=== PATIENT | female | born 1945 | race Caucasian/White ===

== ENCOUNTER → 2016-07-30 | Outpatient (CLI) | payer OTHER ==
[~2016-07-30] MED LIST: AMLO2.5T2 PO; ASPEC81 PO; ATEN-173 PO; CALC500C3 PO; CALCTAB7 PO; CHOL100027 PO; CLR10 PO; FENO54TA PO; FISHOIL PO; MULT-506 PO; NTRGSL/4 UT; PRLSR20 PO; PXL20 PO; SUMA20SP; ZCRT/40 PO
--- NOTE | 2016-07-30 09:14 | DIAGNOSTIC IMAGING REPORT ---
(BARIUM SWALLOW) ESOPHAGUS CLINICAL HISTORY: DYSPHAGIA COMPARISON STUDY: None. FLUOROSCOPY TIME: 1.3 minutes. 30 images submitted.. FINDINGS: The contours of the hypopharynx are within normal limits. The esophagus normal in course, caliber, and motility. There is severe gastroesophageal reflux. No hiatus hernia. IMPRESSION: Severe gastroesophageal reflux. Electronically signed by: Sundeep Enamorado M.D. 07/30/2016 9:13 AM Dictated Date/Time: 07/30/2016 9:12 AM
== END | disposition home or self-care (01) ==
LOC: C.RAD 08:37
PROVIDERS: ATTEND Internal Medicine
DX: R13.12 Dysphagia, oropharyngeal phase (principal); K21.9 Gastro-esophageal reflux disease without esophagitis

== ENCOUNTER 2022-01-30 06:12 | Observation (INO) ==
--- NOTE | 2021-12-28 12:27 | PAT Medication Instructions ---
Medication Instructions Date of Service December 28, 2021 Home Medications amlodipine 5 mg tablet 5 mg PO QAM nitroglycerin 0.4 mg sublingual tablet 0.4 mg sublingual Q5M PRN Chest Pain simvastatin 20 mg tablet 20 mg PO HS lisinopril 10 mg tablet 10 mg PO QAM cetirizine 10 mg capsule (Zyrtec) 10 mg PO QAM PRN allergies famotidine 20 mg tablet 20 mg PO QAM coenzyme Q10 200 mg capsule (Co Q-10) 200 mg PO QAM metoprolol succinate 25 mg tablet,extended release 24 hr 25 mg PO QAM Women's 50 Plus Daily Formula 1 tab PO QAM omega-3 fatty acids-vitamin E 1,000 mg capsule 1 cap PO TID sertraline 50 mg tablet 50 mg PO QAM Continue as directed nitroglycerin 0.4 mg sublingual tablet 0.4 mg sublingual Q5M PRN Chest Pain (if needed) STOP taking 2 weeks before surgery (or as soon as possible if surgery is within 2 weeks) coenzyme Q10 200 mg capsule (Co Q-10) 200 mg PO QAM omega-3 fatty acids-vitamin E 1,000 mg capsule 1 cap PO TID DO NOT take the morning of surgery lisinopril 10 mg tablet 10 mg PO QAM cetirizine 10 mg capsule (Zyrtec) 10 mg PO QAM PRN allergies Women's 50 Plus Daily Formula 1 tab PO QAM Take morning of surgery With a small sip of water, OTHERWISE NOTHING TO EAT OR DRINK AFTER MIDNIGHT: amlodipine 5 mg tablet 5 mg PO QAM famotidine 20 mg tablet 20 mg PO QAM metoprolol succinate 25 mg tablet,extended release 24 hr 25 mg PO QAM sertraline 50 mg tablet 50 mg PO QAM Take evening before surgery simvastatin 20 mg tablet 20 mg PO HS Other Notes If you have any questions please call us at [phone] or [phone] or [phone] or [phone]
--- NOTE | 2022-01-03 11:52 | Anesthesiology Consultation ---
Date of Service January 03, 2022 Assessment & Plan (1) Encounter for pre-operative examination: - cardiology 09/26/21 [place]: "...Remote history of mild coronary artery disease on cardiac catheterization...History of stress-induced cardiomyopathy (Takotsubo syndrome)...No anginal or anginal equivalent symptoms...did not have any anginal or anginal equivalent symptoms with prolonged exertion even when at high altitudes when visiting [place]...stable exercise tolerance and stamina...Hypertension. Initial blood pressure mildly elevated. Repeat pressure taken by me showed improvement in the diastolic reading...follow-up visit interval to 1 year..." - COVID screening: Per assessment on 01/03/2022: Travel screen negative, no known COVID-19 positive contacts or current COVID-19 related symptoms in past 2 weeks. Pt vaccinated. Surgeon arranging preop COVID testing, scheduled 01/26/2022. Awaiting results. Chart Review Chart Review: Acceptable Risk for Surgery and Patient seen in Pre Admission Testing Teaching & Discussion Pre-Anesthesia Teaching/Discussion Notes: Instructed NPO after midnight before surgery, except medications with 15 cc of water. Medication instructions provided according to the PAT guidelines. History Surgery Operation Date: 01/30/22 07:15 Proposed Procedures p Right Total Knee Arthroplasty - Manuel Daly DO Height/Weight Height: 5 ft 1.5 in Weight: 78.9 kg Allergies Allergy/AdvReac Type Severity Reaction Status Date / Time nickel Allergy Mild skin Verified 01/03/22 09:50 irritation, rash, itching ezetimibe Allergy Unknown RASH Verified 01/03/22 09:50 metronidazole Allergy Unknown lips break Verified 01/03/22 09:50 out in sores diclofenac AdvReac Intermediate rash Verified 01/03/22 09:50 stainless steel Allergy Mild Uncoded 01/03/22 12:00 Medications Home Medications Medication Instructions Recorded Confirmed Last Taken amlodipine 5 mg tablet 5 mg PO QAM 12/10/19 01/03/22 Unknown nitroglycerin 0.4 mg sublingual 0.4 mg sublingual Q5M PRN Chest 12/10/19 01/03/22 Unknown tablet Pain simvastatin 20 mg tablet 20 mg PO HS 12/10/19 01/03/22 Unknown lisinopril 10 mg tablet 10 mg PO QAM 09/19/20 01/03/22 Unknown cetirizine 10 mg capsule (Zyrtec) 10 mg PO QAM PRN allergies 03/27/21 01/03/22 Unknown famotidine 20 mg tablet 20 mg PO QAM 03/27/21 01/03/22 Unknown Wheeled Walker #1 ea 12/28/21 01/03/22 Unknown coenzyme Q10 200 mg capsule (Co 200 mg PO QAM 12/28/21 01/03/22 Unknown Q-10) metoprolol succinate 25 mg 25 mg PO QAM 12/28/21 01/03/22 Unknown tablet,extended release 24 hr [id number] ac 400 1 tab PO QAM 12/28/21 01/03/22 Unknown mcg-calcium carb 500 mg-vit K1 20 mcg tablet (Women's 50 Plus Daily Formula) omega-3 fatty acids-vitamin E 1 cap PO TID 12/28/21 01/03/22 Unknown 1,000 mg capsule sertraline 50 mg tablet 50 mg PO QAM 12/28/21 01/03/22 Unknown Additional Notes: Pt states is planning to take Imodium night before surgery d/t loose BM ongoing since COVID illness; she was advised that is fine, but cannot take DOS. She verbalized understanding and denied questions or concerns. She denies any additional supplements/medications OTC or Rx. Past Medical History Medical History (Updated 01/03/22 @ 14:26 by Cheli Tompkins PA-C) CAD (coronary artery disease) cath in 2008, per [place] cardio records: "Cardiac catheterization revealed diffuse mild atherosclerotic disease in the distal LAD. Left circumflex and right coronary artery without obstructive disease. Left ventricular angiography with hypokinetic apex. It was felt that the patient had a stress-induced cardiomyopathy (Takotsubo syndrome). Stress echocardiogram July 2010 negative for evidence of myocardial ischemia at 81% maximum predicted heart rate. Resting echo with normal left ventricular systolic function and wall motion. Mild mitral regurgitation." CKD (chronic kidney disease) stage 3 Dyslipidemia GE reflux chronic, intermittent symptoms History of angina 2020, spoke w/Dr. Peres and he advised her to "take an aspirin">resolved quickly; denies recurrence History of COVID-19 11/01/2021, home test-lethargy, appetite changes, denies hospitalization, residual loose bowel movements occasionally taking Imodium Hypertension controlled, stable per pt Migraine hx-"30 years ago" Myocardial Infarction 2008; f/u Dr. Ja MONREAL (nonalcoholic steatohepatitis) Takotsubo syndrome Patient denies h/o stroke, seizures, heart failure, DM, blood clots or blood transfusions. Exercise / Class Metabolic Activity III < 4 Walking/Shop/Light housework (denies CP or SOB with usual activities) Past Surgical History Surgical History (Updated 01/03/22 @ 12:04 by Cheli Tompkins PA-C) History of bunionectomy of both great toes History of cardiac cath 2009, [place], no stents: per [place] cardio records: Cardiac catheterization revealed diffuse mild atherosclerotic disease in the distal LAD. Left circumflex and right coronary artery without obstructive disease. Left ventricular angiography with hypokinetic apex. It was felt that the patient had a stress-induced cardiomyopathy (Takotsubo syndrome). History of dilatation and curettage Hx of appendectomy Hx of cataract extraction rt. and lt. Hx of colonoscopy Past Anesthesia History No Hx of Anesthesia Complications and No Family Hx of Anesthesia Complications History of PONV No Hx of PONV and No Hx of Motion Sickness Social History Smoking Status: Never smoker Do You Dip or Chew Tobacco: No Hx Alcohol Use: Yes Alcohol type: wine alcohol intake frequency: holidays/special occasions only Hx Substance Use: No substance use type: does not use Review of Systems Snoring, denies witnessed apneas. Patient denies chest pain, shortness of breath, dyspnea on exertion, fever, chills, cough, wheezing, or palpitations. Physical Exam Vital Signs Vitals BP 140/74 P 54 TEMP 98.5 SP02 99% on RA RESP 17 Physical Full cervical extension range of motion without pain TMD 3.5 finger breadths Mallampati Score 2 Dentition: edentulous Lungs: normal respiratory effort. Clear throughout to auscultation, no adventitious breath sounds Cardiac: regular rate and rhythm, no murmurs noted Carotid arteries: negative bruit bilat Lab Results Anesthesia Preop Results Results Anesthesia Widget: WBC 7.49 K/ul (4.8-10.8) 01/03/22 Hgb 14.3 g/dl (12.0-16.0) 01/03/22 Hct 42.7 % (34.1-44.9) 01/03/22 Plt 292 K/uL (130-400) 01/03/22 Na 138 mmol/L (136-145) 01/03/22 K 4.1 mmol/L (3.5-5.1) 01/03/22 Cl 105 mmol/L (98-107) 01/03/22 CO2 27 mmol/L (21-32) 01/03/22 BUN 14 mg/dl (6-23) 01/03/22 Creat 0.87 mg/dl (0.6-1.2) 01/03/22 Glucose Level 100 mg/dl (70-99(Fasting)) H 01/03/22 PT 10.6 Seconds (9.0-12.0) 01/03/22 PTT 26.9 Seconds (21.0-31.0) 01/03/22 INR 1.0 (0.9-1.1) 01/03/22 Blood Type B Negative 01/03/22 Antibody Screen NEGATIVE 01/03/22 Testing Electrocardiogram Date: 03/06/21 Sinus rhythm, rate 63 bpm Chest X-Ray Date: 01/03/22 No acute cardiopulmonary disease.
[~2022-01-30 06:12] MED LIST changes: +ACETAMINOPHEN 500 MG TAB PO SCH; -AMLO2.5T2 PO; -ASPEC81 PO; -ATEN-173 PO; -CALC500C3 PO; -CALCTAB7 PO; -CHOL100027 PO; -CLR10 PO; +FAMOTIDINE 20 MG TAB PO SCH; -FENO54TA PO; -FISHOIL PO; +GABAPENTIN 300 MG CAP PO SCH; +Ketorolac (*for OR use only*) 30 MG, dexAMETHasone 4 MG, KETAMINE HCL (**OR use only) 1... INFIL SCH; +LR 500ML BOLUS, THEN 15ML/HR IV SCH; +LR 60ML/HR IV SCH; -MULT-506 PO; -NTRGSL/4 UT; -PRLSR20 PO; -PXL20 PO; -SUMA20SP; +TRANEXAMIC ACID 1,000 MG **IV Intra-op IV SCH; +TRANEXAMIC ACID 1,000 MG **IV Pre-op IV SCH; -ZCRT/40 PO; +ceFAZolin 1000MG 1,000 MG/7.5 ML SYR IV SCH; +dexAMETHasone 4 MG TAB PO SCH
[2022-01-30] MEDS ORDERED: BUPIVACAINE 0.5 % 5 MG/1 ML PF 10ML VIAL ONE (07:50)
[2022-01-30] MEDS ORDERED: ROPIVACAINE 0.5% 5 MG/ML 30 ML VIAL ONE (07:50)
[2022-01-30] MEDS ORDERED: MIDAZOLAM HCL 1 MG/ML 2ML VIAL ONE ×2 (08:30)
[2022-01-30] MEDS ORDERED: ONDANSETRON INJ 2 MG/ML 2 ML VIAL ONE (08:47)
[2022-01-30] MEDS ORDERED: PHENYLEPHRINE HCL 10 MG/ML VIAL ONE (08:47)
[2022-01-30] MEDS ORDERED: PROPOFOL IV EMULSION 10 MG/ML 20 ML VIAL IV ONE ×2 (08:47→10:54)
[2022-01-30] MEDS ORDERED: ePHEDrine sulfate 50 MG/ML AMP ONE (08:47)
[2022-01-30] MEDS ORDERED: ePHEDrine sulfate 50 MG/ML AMP IV PRN (09:07)
[2022-01-30] MEDS ORDERED: ATROPINE SULFATE 0.1 MG/ML 10ML SYR IV PRN (09:07)
[2022-01-30] MEDS ORDERED: ONDANSETRON INJ 2 MG/ML 2 ML VIAL IV PRN ×2 (09:07→12:39)
[2022-01-30] MEDS ORDERED: HYDROmorphone INJ 1 MG/ML SYRINGE IV PRN (09:07)
[2022-01-30] MEDS ORDERED: ORTHO JOINT ANESTHETIC ONE (09:56)
--- NOTE | 2022-01-30 10:07 | History & Physical Bridge Note ---
Date of Service January 30, 2022 History & Physical Bridge Note I have examined the patient, reviewed the History & Physical and in the interval since the performance of the History & Physical I have noted the following changes of clinical significance: no changes noted
--- NOTE | 2022-01-30 11:27 | Operative Report ---
PG Post Operative Report Pre & Post Diagnosis Operation Date: 01/30/22 09:35 Pre-Op Diagnosis: Right Knee Degenerative Joint Disease Post-Op Diagnosis: Right Knee Degenerative Joint Disease I identified the patient and participated in the time-out.: Yes Procedure Operation Date: 01/30/22 09:35 Actual Procedures p Right Total Knee Arthroplasty, Cemented(Right) - Manuel Daly DO Surgeon Manuel Daly DO Beater Engineer Helper Manuel Wolfe PA-C Estimated Blood Loss 25 Findings Consistent with Post-Op Diagnosis Specimens Right femoral and tibial bone Description of Procedure Implants used: I used a Ebony Persona total knee arthroplasty system with a size 5 PS standard tivanium femur, D tibia with a 30 mm stem extension, 25 oval patella, and a size 12 CPS polyethylene bearing. All components were cemented in place with Biomet cement. Miles arrived [facility] for the above procedure. She was seen in the preoperative holding area and the operative extremity was identified and signed. She was given a preoperative antibiotic, TXA, a spinal anesthetic and an adductor nerve block. She was taken back to the operating room and laid on the table in supine position. She was given basic sedation. The operative knee was then prepped and draped in sterile fashion. A timeout was done, and the patient and the operative extremity was properly identified. A midline incision was made directly over the patella. Dissection was taken down to the extensor mechanism. A subvastus arthrotomy was used. The medial retinaculum was released and the fat pad was mostly excised. The knee was flexed and the ACL, PCL, and meniscus were removed. A drill was sent down the center of the femoral canal followed by an intramedullary yonatan. Off that yonatan a distal femoral cutting block was placed. 9 mm was resected off the distal femur at 5 of valgus. A posterior referencing AP sizing guide was then placed on the distal femur. The femur measured to be a size 5. 2 drill holes were placed in 3 of external rotation. A 4-in-1 cutting block was then impacted into place. Anterior, posterior, and chamfer cuts were then made. The proximal tibia was then exposed. An external tibial alignment guide was placed. A tibial cut guide was then anchored in place and the proximal tibia was then resected. The posterior aspect of the knee was then opened up and any additional meniscus fragments and osteophytes were removed. The tibia measured to be a size D. The tibial plate was then placed in the appropriate rotation and the tibia was drilled and punched. Trial components were then placed. I used a size 12 CPS polyethylene insert. The knee was brought through a full range of motion and felt to be stable. The peg holes for the femoral component were then drilled. The patella was then everted and 9 mm was resected off the posterior aspect of the patella. The patella measured to be a size 25 oval. 3 peg holes were then drilled. A trial patella was placed. The knee was once again brought through a full range of motion and felt to be stable. Trial components were then removed. The surrounding soft tissues were injected with 100 cc of an orthopedic pain control cocktail. All components were then cemented into place with Biomet cement. The final polyethylene insert was then snapped into place. Once cement was dry the tourniquet was deflated. Hemostasis was obtained. A dilute betadyne lavage was then done for 3 minutes. The joint was then irrigated with normal saline solution. The subvastus arthrotomy was then closed with #1 Vicryl suture. The skin was closed with 2-0 Vicryl, 3-0V lock suture, and pawel. A soft compressive dressing was placed. She was then transferred to a hospital bed and taken to the postanesthesia care unit in stable condition. She tolerated the procedure well. Manuel Wolfe PA-C, was present for the entire procedure. He was critical for p atient positioning, prepping, draping, retraction exposure, wound closure and application of sterile dressing. I attest to the content of the Intraoperative Record and any orders documented therein. Any exceptions are noted below.
--- NOTE | 2022-01-30 12:23 | XRay Report ---
TWO VIEWS RIGHT KNEE CLINICAL HISTORY: Postoperative examination. FINDINGS: AP and crosstable lateral portable views of the right knee are obtained. Comparison is made to study dated 09/04/2021. A right knee arthroplasty is in near anatomic alignment. There has been un dersurface remodeling of the patella. Tiny avulsion fracture fragments are suggested along the medial joint space. No additional findings are suggestive of acute fracture. There are expected postoperati ve changes around the knee including skin clips, soft tissue edema, and subcutaneous gas. IMPRESSION: 1. Expected postoperative changes status post right knee arthroplasty. 2. Avulsion fracture fragments are suggested along the medial joint space. ACT 112: Negative or not required by law. Electronically signed by: Larry Cullen M.D. 01/30/2022 12:22 PM
--- NOTE | 2022-01-30 12:38 | Anesthesiology Progress Note ---
Date of Service January 30, 2022 Anesthesia Post Procedure Vital Signs Vital Signs: Temp Pulse Pulse Resp BP BP Pulse Ox 01/30/22 12:15 58 L 13 124/71 94 01/30/22 12:05 64 14 145/69 H 99 01/30/22 11:55 55 L 15 133/70 96 01/30/22 11:45 36.2 C L 59 L 18 131/66 92 01/30/22 06:47 36.6 C 58 L 20 171/91 H 95 O2 Del Method O2 Flow Rate 01/30/22 12:15 Room Air 01/30/22 12:05 Oxymask 7 01/30/22 11:55 Oxymask 7 01/30/22 11:45 Oxymask 7 01/30/22 06:47 Room Air Transfer of Care Handoff Completed per policy Notes Mental Status: alert / awake / arousable Patient Amnestic to Procedure: Yes Nausea / Vomiting: adequately controlled Pain: adequately controlled Airway Patency, RR, SpO2: stable & adequate BP & HR: stable & adequate Hydration State: stable & adequate Neuraxial Anesthesia: was administered and sensory block is resolving Anesthetic Complications: no major complications apparent
[2022-01-30] MEDS ORDERED: NITROGLYCERIN SL 0.4 MG/TAB TAB SL PRN (12:39)
[2022-01-30] MEDS ORDERED: bisacodyL 10 MG SUPP PR PRN (12:39)
[2022-01-30] MEDS ORDERED: CETIRIZINE HCL 10 MG TABLET PO PRN (12:39)
[2022-01-30] MEDS ORDERED: METOCLOPRAMIDE HCL INJ 5 MG/ML 2 ML VIAL IV PRN (12:39)
[2022-01-30] MEDS ORDERED: NALOXONE HCL 0.4 MG/1 ML VIAL/CARP IV PRN (12:39)
[2022-01-30] MEDS ORDERED: HYDROmorphone INJ 0.5 MG/0.5 ML SYR IV PRN (12:39)
[2022-01-30] MEDS ORDERED: MAGNESIUM HYDROXIDE SUSP 30 ML UDC PO PRN (12:39)
[2022-01-30] MEDS: SODIUM CHLORIDE 0.9% 1000ML 1,000 ML IV SCH ×2 (15:33→22:56)
[2022-01-30] MEDS: KETOROLAC TROMETHAMINE 15 MG/ML VIAL IV SCH ×2 (15:53→20:44)
[2022-01-30] MEDS: ACETAMINOPHEN 500 MG TAB PO SCH ×2 (16:13→22:45)
[2022-01-30] MEDS: ceFAZolin 2000MG 2,000 MG/15 ML SYR IV SCH (18:34)
[2022-01-30] MEDS: ASPIRIN 81 MG ECTAB PO SCH (20:38)
[2022-01-30] MEDS: DOCUSATE SODIUM 100 MG CAP PO SCH (20:39)
[2022-01-30] MEDS ORDERED: SENNA 8.6 MG TAB PO SCH (21:00)
[2022-01-30] MEDS ORDERED: SIMVASTATIN 20 MG TAB PO SCH (21:00)
[2022-01-30] MEDS: oxyCODONE HCL IR 5 MG TAB (IMMEDIATE RELEASE) PO PRN (22:44)
[2022-01-31] MEDS: ceFAZolin 2000MG 2,000 MG/15 ML SYR IV SCH (01:49)
[2022-01-31] MEDS: KETOROLAC TROMETHAMINE 15 MG/ML VIAL IV SCH ×2 (01:50→07:50)
[2022-01-31 03:46] VITALS: TEMP 97.7
[2022-01-31] MEDS: ACETAMINOPHEN 500 MG TAB PO SCH (06:36)
--- NOTE | 2022-01-31 06:40 | Orthopedic Progress Note ---
Date of Service January 31, 2022 Assessment & Plan (1) Status post right knee replacement: Overall she is doing very well. She is not having much pain in the right knee. She will be seen by physical therapy today for ambulation and range of motion exercises. She is on aspirin for DVT prophylaxis. She can be discharged home later today. She will follow-up with orthopedics in 2 weeks. Kuldeep Aquino was seen and examined at bedside this morning. Overall she is doing very well. She is not having much pain in the right knee. She has been up and ambulating in the hallways. She has no complaints.. Review of Systems All systems reviewed & are unremarkable except as noted in HPI & below. Physical Exam On physical examination of the right knee, the dressing is clean and dry. Her leg is out in full extension. She has active dorsiflexion plantarflexion of her right ankle. Sensation is intact throughout.. Results & Data Results & Data Laboratory Results . Diagnostic Findings Postoperative x-rays of the right knee show the prosthesis to be in anatomic alignment without any evidence of fracture, dislocation, or loosening. PG Care Time/CCT Total # of Minutes Spent Total Time Spent with Patient: Total time spent is greater than 50% in coordination of care (as documented) at patient's floor/unit and/or counseling patient: Coding Level of Care Code 38259 Post Operative Follow-Up Diagnoses Status post right knee replacement Z96.651
--- NOTE | 2022-01-31 06:41 | Discharge Summary ---
Date of Service January 31, 2022 Principal Diagnosis Same as "Discharge Diagnosis" noted below under Discharge Instructions. Discharge Exam On physical examination of the right knee, the dressing is clean and dry. Her leg is out in full extension. She has active dorsiflexion plantarflexion of her right ankle. Sensation is intact throughout.. Discharge Data Procedures Performed Operation Date: 01/30/22 09:35 Actual Procedures p Right Total Knee Arthroplasty, Cemented(Right) - Manuel Daly DO Ordered Studies 01/30/22 05:00 US - OR guided needle placemen Routine Hospital Course (1) Status post right knee replacement: On January 30, 2022 Miles arrived at [facility] and underwent a right knee replaced without complication. She had a spinal anesthetic. Postoperatively she was started on aspirin for DVT prophylaxis and transferred to the general orthopedic floors. Her hospital course was uneventful. On postop day #1, her vital signs were stable and her pain was well controlled. She was able to participate well with physical therapy doing ambulation and range of motion exercises. She was then discharged home. She will follow-up with orthopedics in 2 weeks. PG Care Time/CCT Total # of Minutes Spent Total Time Spent with Patient: Total time spent is greater than 50% in coordination of care (as documented) at patient's floor/unit and/or counseling patient: Discharge Plan Discharge Items Patient Disposition: Home - Home Health Services Reason For Visit: Right Knee Degenerative Joint Disease Discharge Diagnosis: Right knee replacement Activity: Per Instructions section Non-emergency contact: Surgeon Call non-emergency contact if: your wound has increased redness and your wound has increased drainage Follow-up/Referrals: Cristina Hills DO [Primary Care Provider] - Diet: Regular Addtl Attending Provider Instructions: Activity and Therapy Recommendations: * If you are using [facility] then therapy will be provided at your home until they feel you have accomplished all of your goals. * If you are using [facility] then Physical Therapy will be provided until they feel you are ready to start Outpatient Physical Therapy. * If you are not using home therapy then Outpatient Physical Therapy should start about 3-5 days from your day of surgery. Therapy will last about 6-10 weeks * It is important not to put a pillow under your knee when you are relaxing or sleeping. It is just as important to make sure you are getting your knee perfectly straight as it is to regain your knee bend. * You were shown a series of exercises in the hospital. Do these exercises three times each day including the exercises you were shown in physical therapy. * Get up and walk several times each day. For the first four weeks, try not to stand or walk for more than one hour at a time. If you do stand or walk for more than one hour, you will not hurt anything, but your leg will likely swell. * As you feel comfortable, you may change from the walker or crutches to a cane and then to independent walking. Medications: * Narcotic You will likely be sent home from the hospital with a prescription for the narcotic pain medication that worked best throughout your stay. * Aspirin Most patients will be required to take Aspirin 81mg twice a day for 6 weeks after surgery. This is obtained [id number] and a prescription is not necessary. * Other medications may be prescribed for specific circumstances. If you have any questions, please call the office at . * Resume previous home medications unless otherwise instructed TEDs/Elastic Stockings: The white elastic stockings help limit swelling and prevent blood clots from forming in your legs.~ The more you wear them, the more they work. Wear them for six weeks. Dressing Care: The dressing can be changed after physical therapy on postop day #1. Daily dry dressing changes for a few days, especially if the incision is still draining some. If the incision is not draining then you may leave the pawel open to air. If there is a little bit of drainage or if the pawel are getting stuck on your clothing then cover the incision with a dry dressing. The pawel will be removed at your 2 week follow-up appointment. Showering: You may shower 5 days from the day of surgery as long as the incision is no longer draining. You may shower with the pawel exposed. Let soapy water run over the pawel and pat them dry. Do not scrub or soak the incision. Things To Watch For: * Drainage from the incision site that occurs more than one week after your surgery. * Increased redness at the incision site. * Fever above 102 degrees Fahrenheit. * Unusual chest pain or shortness of breath. * Call [facility] at with any of the above problems Follow-Up Visit: Follow-up with Dr. Daly's PA (Manuel Wolfe) 2-3 weeks after your day of surgery. He will remove your pawel and answer any questions. If you have any additional questions or concerns, Dr Daly is usually in the office at the same time and will be available An appointment was probably scheduled when you signed-up for surgery in the office. If you have any questions call Office Instructions: More detailed instructions as well as Frequently Asked Questions were provided in a folder by our office when you signed-up for surgery. Please review these instructions when you get home. If you have any further questions or concerns, please feel free to call the office at [phone] Pending Studies at Discharge: No Stand-Alone Forms: [facility] Medications and DC Order Prescriptions: New oxycodone-acetaminophen 5-325 mg tablet 1 tab PO Q6H PRN (Reason: pain) Qty: 30 0RF aspirin 81 mg Tablet,Delayed Release (Dr/Ec) 81 mg PO BID 42 Days Qty: 0 0RF Continued (DME) [facility] See Rx Instructions .MEDSUPPLY Qty: 1 0RF Rx Instructions: As directed amlodipine 5 mg tablet 5 mg PO QAM nitroglycerin 0.4 mg tablet, sublingual 0.4 mg SL Q5M PRN (Reason: Chest Pain) simvastatin 20 mg tablet 20 mg PO HS lisinopril 10 mg tablet 10 mg PO QAM Zyrtec 10 mg capsule 10 mg PO QAM PRN (Reason: allergies) famotidine 20 mg tablet 20 mg PO QAM metoprolol succinate 25 mg Tablet Extended Release 24 Hr 25 mg PO QAM sertraline 50 mg Tablet 50 mg PO QAM Fish Oil 1,000 mg Capsule 1 cap PO TID coenzyme Q10 [Co Q-10] 200 mg Capsule 200 mg PO QAM Women's 50 Plus Daily Formula 400 mcg-500 mg calcium-20 mcg Tablet 1 tab PO QAM Discharge Orders: Discharge Order (Routine); Ordered 01/31/22 Ordered By: Manuel Daly Admission Data Admit Date/Time: 01/30/22 11:44 Attending Provider: Manuel Daly Admit Provider: Manuel Daly Primary Care Provider: Cristina Hills
[2022-01-31 07:17] VITALS: PULSE 60; O2SAT 96
[2022-01-31] MEDS: DOCUSATE SODIUM 100 MG CAP PO SCH (07:46)
[2022-01-31] MEDS: ASPIRIN 81 MG ECTAB PO SCH (07:46)
[2022-01-31] MEDS ORDERED: dexAMETHasone 4 MG TAB PO SCH (08:00)
[2022-01-31] MEDS: oxyCODONE HCL IR 5 MG TAB (IMMEDIATE RELEASE) PO PRN (08:36)
[2022-01-31] MEDS ORDERED: METOPROLOL SUCC 25MG EXT REL TAB PO SCH (09:00)
[2022-01-31] MEDS ORDERED: SERTRALINE HCL 50 MG TABLET PO SCH (09:00)
[2022-01-31] MEDS ORDERED: FAMOTIDINE 20 MG TAB PO SCH (09:00)
[2022-01-31] MEDS ORDERED: MULTIVITAMIN TAB PO SCH (09:00)
[2022-01-31] MEDS ORDERED: lisinopril 10 MG TAB PO SCH (09:00)
[2022-01-31] MEDS ORDERED: amLODIPine BESYLATE 5 MG TAB PO SCH (09:00)
[2022-01-31 10:29] VITALS: BP 114/59
== END 2022-01-31 11:00 | disposition home health service (06) ==
LOC: PACUINP 06:12 → ASU 06:12 → 3E 14:45
DX: Z79.899 Other long term (current) drug therapy; M17.11 Unilateral primary osteoarthritis, right knee; Z91.048 Other nonmedicinal substance allergy status; Z88.8 Allergy status to other drugs, medicaments and biological substances

== ENCOUNTER 2022-08-27 09:41 | Observation (INO) ==
--- NOTE | 2022-07-25 15:32 | PAT Medication Instructions ---
Medication Instructions Date of Service July 25, 2022 Home Medications Medication Instructions Recorded Kamron Walker #1 ea 12/28/21 oxycodone-acetaminophen 5 mg-325 1 tab PO Q6H PRN pain #30 tabs 02/13/22 mg tablet amlodipine 5 mg tablet 5 mg PO QAM nitroglycerin 0.4 mg sublingual tablet 0.4 mg sublingual Q5M PRN Chest Pain lisinopril 10 mg tablet 10 mg PO QAM cetirizine 10 mg capsule (Zyrtec) 10 mg PO QAM PRN allergies famotidine 20 mg tablet 20 mg PO QAM coenzyme Q10 200 mg capsule (Co Q-10) 200 mg PO QAM metoprolol succinate 25 mg tablet,extended release 24 hr 25 mg PO QAM Women's 50 Plus Daily Formula 1 tab PO QAM omega-3 fatty acids-vitamin E 1,000 mg capsule 1 cap PO QAM sertraline 50 mg tablet 50 mg PO QAM oxycodone-acetaminophen 5 mg-325 mg tablet 1 tab PO Q6H PRN pain atorvastatin 20 mg tablet 20 mg PO HS Continue as directed nitroglycerin 0.4 mg sublingual tablet 0.4 mg sublingual Q5M PRN Chest Pain (if needed) STOP taking 2 weeks before surgery (or as soon as possible if surgery is within 2 weeks) coenzyme Q10 200 mg capsule (Co Q-10) 200 mg PO QAM omega-3 fatty acids-vitamin E 1,000 mg capsule 1 cap PO QAM DO NOT take the morning of surgery lisinopril 10 mg tablet 10 mg PO QAM cetirizine 10 mg capsule (Zyrtec) 10 mg PO QAM PRN allergies Women's 50 Plus Daily Formula 1 tab PO QAM Take morning of surgery With a small sip of water, OTHERWISE NOTHING TO EAT OR DRINK AFTER MIDNIGHT: amlodipine 5 mg tablet 5 mg PO QAM famotidine 20 mg tablet 20 mg PO QAM metoprolol succinate 25 mg tablet,extended release 24 hr 25 mg PO QAM sertraline 50 mg tablet 50 mg PO QAM oxycodone-acetaminophen 5 mg-325 mg tablet 1 tab PO Q6H PRN pain (if needed) Take evening before surgery oxycodone-acetaminophen 5 mg-325 mg tablet 1 tab PO Q6H PRN pain (if needed) atorvastatin 20 mg tablet 20 mg PO HS Other Notes If you have any questions please call us at [phone] or [phone] or [phone] or [phone]
--- NOTE | 2022-07-31 12:13 | Anesthesiology Consultation ---
Date of Service July 31, 2022 Assessment & Plan (1) Encounter for pre-operative examination: Chart Review Chart Review: Acceptable Risk for Surgery and Patient seen in Pre Admission Testing -Pt is not ideal Outpatient Joint candidate due to age Per PAT appt on 07/31/22, patient denies any recent travel or large group activities. Pt is vaccinated for Covid. Will leave to surgeon's discretion if preop Covid testing needed. Educated on importance of using Covid precautions one week prior to surgery Right TKA 01/30/22= Done under [facility]AB at L3-4. Last seen by cardio 09/26/21= Remote hx of mild CAD on cardiac cath. Hx of stress induced CM (Takotsubo syndrome). No anginal symptoms. Stable exercise tolerance and stamina. Dyslipidemia- tolerating statin. HTN- BP improved on recheck. Continue current meds. Follow up in one year Teaching & Discussion Pre-Anesthesia Teaching/Discussion Notes: Instructed NPO after midnight before surgery,except medications with 15 cc of water. Medication instructions provided according to the PAT guidelines. History Surgery Operation Date: 08/27/22 08:50 Proposed Procedures p Left Total Knee Arthroplasty - Manuel Daly, Height/Weight Height: 5 ft 1 in Weight: 78.2 kg Allergies Allergy/AdvReac Type Severity Reaction Status Date / Time nickel Allergy Mild skin Verified 07/25/22 13:54 irritation, rash, itching ezetimibe Allergy Unknown RASH Verified 07/25/22 13:54 metronidazole Allergy Unknown lips break Verified 07/25/22 13:54 out in sores diclofenac AdvReac Intermediate rash Verified 07/25/22 13:54 stainless steel Allergy Mild "makes my Uncoded 07/25/22 13:54 ears seep" Medications Home Medications Medication Instructions Recorded Confirmed Last Taken amlodipine 5 mg tablet 5 mg PO QAM 12/10/19 07/25/22 01/30/22 05:15 nitroglycerin 0.4 mg sublingual 0.4 mg sublingual Q5M PRN Chest 12/10/19 07/25/22 Unknown tablet Pain lisinopril 10 mg tablet 10 mg PO QAM 09/19/20 07/25/22 01/29/22 09:00 cetirizine 10 mg capsule (Zyrtec) 10 mg PO QAM PRN allergies 03/27/21 07/25/22 01/27/22 famotidine 20 mg tablet 20 mg PO QAM 03/27/21 07/25/22 01/30/22 05:15 Wheeled Walker #1 ea 12/28/21 01/03/22 Unknown coenzyme Q10 200 mg capsule (Co 200 mg PO QAM 12/28/21 07/25/22 Unknown Q-10) metoprolol succinate 25 mg 25 mg PO QAM 12/28/21 07/25/22 01/30/22 05:15 tablet,extended release 24 hr [id number] ac 400 1 tab PO QAM 12/28/21 07/25/22 01/16/22 mcg-calcium carb 500 mg-vit K1 20 mcg tablet (Women's 50 Plus Daily Formula) omega-3 fatty acids-vitamin E 1 cap PO QAM 12/28/21 07/25/22 12/30/21 1,000 mg capsule sertraline 50 mg tablet 50 mg PO QAM 12/28/21 07/25/22 01/30/22 05:15 oxycodone-acetaminophen 5 mg-325 1 tab PO Q6H PRN pain #30 tabs 02/13/22 07/25/22 Unknown mg tablet atorvastatin 20 mg tablet 20 mg PO HS 07/25/22 07/25/22 Unknown Past Medical History Medical History (Updated 07/31/22 @ 15:25 by Laureen Cerna PA-C) CAD (coronary artery disease) Remote history of mild CAD on 2008 cardiac cath per cardio records Stress ECHO 2010 showed no ischemia per cardio records CKD (chronic kidney disease) stage 3 Dyslipidemia GE reflux Well controlled and stable History of COVID-19 11/01/2021, home test-lethargy, appetite changes, denies hospitalization- symptoms resolved Hypertension controlled, stable per pt Migraine hx-"30 years ago" Myocardial Infarction 2008; f/u Dr. Ja MONREAL (nonalcoholic steatohepatitis) Takotsubo syndrome Exercise / Class Metabolic Activity II 4-5 Yardwork/Stairs/Walk up hill (one flight of stairs - no chest pain or SOB) Past Surgical History Surgical History History of bunionectomy of both great toes History of cardiac cath 2008, [place], [place] stents: per [place] cardio records: Cardiac catheterization revealed diffuse mild atherosclerotic disease in the distal LAD. Left circumflex and right coronary artery without obstructive disease. Left ventricular angiography with hypokinetic apex. It was felt that the patient had a stress-induced cardiomyopathy (Takotsubo syndrome). History of dilatation and curettage History of total right knee replacement Hx of appendectomy Hx of cataract extraction rt. and lt. Hx of colonoscopy Past Anesthesia History No Hx of Anesthesia Complications and No Family Hx of Anesthesia Complications History of PONV No Hx of PONV and No Hx of Motion Sickness Social History Smoking Status: Never smoker Do You Dip or Chew Tobacco: No Hx Alcohol Use: Yes Alcohol type: wine alcohol intake frequency: other Alcohol Intake Frequency Comment: very rare Hx Substance Use: No substance use type: does not use Review of Systems Chronic cough- secondary to reflux - stable Hx of snoring - no hx of sleep study Patient denies chest pain, shortness of breath, dyspnea on exertion, wheezing, palpitations. No hx of seizures, stroke. No hx of blood clots or blood transfusions Physical Exam Vital Signs VITALS BP 150/66 P 62 TEMP 98.2 SP02 94% RESP 16 Constitutional no acute distress ENMT Mouth: no TMJ clicking Thyromental Distance: < 3.5 Finger Breadths (3.0) Mallampati Class: I Neck neck extension not limited Full dentures on top and bottom Respiratory normal respiratory effort; no respiratory distress Auscultation: lungs clear to auscultation bilaterally; no wheezes Cardiovascular Rate/Rhythm: regular rate and regular rhythm Heart Sounds: no murmur Vessels: no carotid bruit Musculoskeletal Spine: no pain with cervical ROM Extremities: extremities normal to inspection Psychiatric Orientation: alert Lab Results Anesthesia Preop Results Results Anesthesia Widget: WBC 6.99 K/ul (4.8-10.8) 07/31/22 Hgb 14.2 g/dl (12.0-16.0) 07/31/22 Hct 41.9 % (37.0-47.0) 07/31/22 Plt 290 K/uL (130-400) 07/31/22 Na 141 mmol/L (136-145) 07/31/22 K 3.9 mmol/L (3.5-5.1) 07/31/22 Cl 108 mmol/L (98-107) H 07/31/22 CO2 27 mmol/L (21-32) 07/31/22 BUN 16 mg/dl (6-23) 07/31/22 Creat 0.85 mg/dl (0.6-1.2) 07/31/22 Glucose Level 129 mg/dl (70-99(Fasting)) H 07/31/22 PT 10.6 Seconds (9.0-12.0) 07/31/22 PTT 26.2 Seconds (21.0-31.0) 07/31/22 INR 1.0 (0.9-1.1) 07/31/22 Blood Type B Negative 07/31/22 Antibody Screen NEGATIVE 07/31/22 Testing Electrocardiogram Date: 07/31/22 Findings: + SB @ (59bpm) Otherwise normal EKG per cardio Chest X-Ray Date: 01/03/22 No acute cardiopulmonary disease. Cardiac Catheterization Date: 12/20/08 LM = no obstructive disease LAD = distal LAD 10-30% luminal diameter narrowing Left circumflex = no obstructive disease RCA = no obstructive disease. Conclusions: Mildly elevated aortic systolic pressure. Markedly elevated left ventricular end diastolic pressure. Mild atherosclerotic disease of distal LAD. No significant atherosclerotic disease of the RCA artery or left circumflex coronary artery. Normal overall left ventricular systolic function. LVEF 60%. COVID-19 Risk Screen Screening Information COVID-19 Screen Date: 07/31/22 Exposure 21 Days Family/Household +COVID Last 21 Days: No Exposure 10 Days Any COVID Exposure Last 10 Days: No Symptoms Last 10 Days Experienced COVID Sx Last 10 Days: No + COVID 0-90 Days COVID + in Last 0-90 Days: No Risk Plan COVID Risk Plan: No Risk Identified Patient Education COVID Preop Screening Education Complete: Yes
[~2022-08-27 09:41] MED LIST changes: +BUPIVACAINE 0.5 % 5 MG/1 ML PF 10ML VIAL ONE; -Ketorolac (*for OR use only*) 30 MG, dexAMETHasone 4 MG, KETAMINE HCL (**OR use only) 1... INFIL SCH; +ORTHO JOINT MIX INFIL SCH; +ROPIVACAINE 0.5% 5 MG/ML 30 ML VIAL ONE; -ceFAZolin 1000MG 1,000 MG/7.5 ML SYR IV SCH; +ceFAZolin 2000MG 2,000 MG/15 ML SYR IV SCH
--- NOTE | 2022-08-27 10:00 | History & Physical Bridge Note ---
Date of Service August 27, 2022 History & Physical Bridge Note I have examined the patient, reviewed the History & Physical and in the interval since the performance of the History & Physical I have noted the following changes of clinical significance: no changes noted
[2022-08-27] MEDS ORDERED: MIDAZOLAM HCL 1 MG/ML 2ML VIAL ONE (10:42)
[2022-08-27] MEDS ORDERED: fentaNYL citrate PF 100 MCG/2 ML VIAL ONE (10:42)
[2022-08-27] MEDS ORDERED: PROPOFOL IV EMULSION 10 MG/ML 20 ML VIAL IV ONE (10:51)
[2022-08-27] MEDS ORDERED: ONDANSETRON INJ 2 MG/ML 2 ML VIAL ONE (10:51)
[2022-08-27] MEDS ORDERED: ATROPINE SULFATE 0.1 MG/ML 10ML SYR IV PRN (11:14)
[2022-08-27] MEDS ORDERED: ONDANSETRON INJ 2 MG/ML 2 ML VIAL IV PRN ×2 (11:14→15:33)
[2022-08-27] MEDS ORDERED: ePHEDrine sulfate 50 MG/ML AMP IV PRN (11:14)
[2022-08-27] MEDS ORDERED: fentaNYL citrate PF 100 MCG/2 ML VIAL IV PRN (11:14)
[2022-08-27] MEDS ORDERED: ORTHO JOINT ANESTHETIC ONE (11:57)
[2022-08-27] MEDS ORDERED: ePHEDrine sulfate 50 MG/ML SYR ONE (13:10)
--- NOTE | 2022-08-27 13:21 | Operative Report ---
PG Post Operative Report Pre & Post Diagnosis Operation Date: 08/27/22 12:30 Pre-Op Diagnosis: Degenerative Joint Disease Knee Left Post-Op Diagnosis: Degenerative Joint Disease Knee Left I identified the patient and participated in the time-out.: Yes Procedure Operation Date: 08/27/22 12:30 Actual Procedures p Left Total Knee Arthroplasty(Left) - Manuel Daly DO Surgeon Manuel Daly DO [employer] Manuel Wolfe PA-C Estimated Blood Loss 30 Findings Consistent with Post-Op Diagnosis Specimens Left femoral and tibial bone Description of Procedure Implants used: I used a Ebony Persona total knee arthroplasty system with a size 5 standard PS tivanium femur, D tibia with a 30 mm stem extension, 28 oval patella, and a size 12 CPS polyethylene bearing. All components were cemented in place with Biomet cement. Miles arrived [facility] for the above procedure. She was seen in the preoperative holding area and the operative extremity was identified and signed. She was given a preoperative antibiotic, TXA, a spinal anesthetic and an adductor nerve block. She was taken back to the operating room and laid on the table in supine position. She was given basic sedation. The operative knee was then prepped and draped in sterile fashion. A timeout was done, and the patient and the operative extremity was properly identified. A midline incision was made directly over the patella. Dissection was taken down to the extensor mechanism. A midvastus arthrotomy was used. The medial retinaculum was released and the fat pad was mostly excised. The knee was flexed and the ACL, PCL, and meniscus were removed. A drill was sent down the center of the femoral canal followed by an intram edullary yonatan. Off that yonatan a distal femoral cutting block was placed. 9 mm was resected off the distal femur at 5 of valgus. A posterior referencing AP sizing guide was then placed on the distal femur. The femur measured to be a size 5. 2 drill holes were placed in 3 of external rotation. A 4-in-1 cutting block was then impacted into place. Anterior, posterior, and chamfer cuts were then made. The proximal tibia was then exposed. An external tibial alignment guide was placed. A tibial cut guide was then anchored in place and the proximal tibia was then resected. The posterior aspect of the knee was then opened up and any additional meniscus fragments and osteophytes were removed. The tibia measured to be a size D. The tibial plate was then placed in the appropriate rotation and the tibia was drilled and punched. Trial components were then placed. I used a size 12 CPS polyethylene insert. The knee was brought through a full range of motion and felt to be stable. The peg holes for the femoral component were then drilled. The patella was then everted and 9 mm was resected off the posterior aspect of the patella. The patella measured to be a size 28 oval. 3 peg holes were then drilled. A trial patella was placed. The knee was once again brought through a full range of motion and felt to be stable. Trial components were then removed. The surrounding soft tissues were injected with 100 cc of an orthopedic pain control cocktail. All components were then cemented into place with Biomet cement. The final polyethylene insert was then snapped into place. Once cement was dry the tourniquet was deflated. Hemostasis was obtained. A dilute betadyne lavage was then done for 3 minutes. The joint was then irrigated with normal saline solution. The midvastus arthrotomy was then closed with #1 Vicryl suture. The skin was closed with 2-0 Vicryl, 3-0V lock suture, and pawel. A soft compressive dressing was placed. She was then transferred to a hospital bed and taken to the postanesthesia care unit in stable condition. She tolerated the procedure well. Manuel Wolfe PA-C, was present for the entire procedure. He was critical for patient positioning, prepping, draping, retraction exposure, wound closure and application of sterile dressing. I attest to the content of the Intraoperative Record and any orders documented therein. Any exceptions are noted below.
--- NOTE | 2022-08-27 14:35 | XRay Report ---
XR knee LT 1 or 2V routine CLINICAL HISTORY: Surgical Post Op TECHNIQUE: 2 views of the left knee were obtained. Comparison: Comparison is made to knee radiographs 03/20/2022 FINDINGS: Patient is status post total knee arthroplasty with expected postsurgical changes including soft tiss ue swelling and subcutaneous emphysema. No periarticular lucency or hardware fracture is seen. IMPRESSION: Expected postoperative appearance status post placement of total knee arthroplasty. ACT 112: Negative or not required by law. Electronically signed by: Mann Alves M.D. 08/27/2022 2:34 PM
--- NOTE | 2022-08-27 14:48 | Anesthesiology Progress Note ---
Date of Service August 27, 2022 Anesthesia Post Procedure Vital Signs Vital Signs: Temp Pulse Pulse Resp BP Pulse Ox O2 Del Method 08/27/22 14:20 65 20 136/68 99 Nasal Cannula 08/27/22 14:10 61 16 120/90 98 Nasal Cannula 08/27/22 14:00 66 18 136/68 99 Nasal Cannula 08/27/22 13:50 63 18 130/65 99 Oxymask 08/27/22 13:42 96.8 F L 68 18 131/68 98 Oxymask 08/27/22 10:05 97.5 F L 60 18 150/102 H 96 Room Air O2 Flow Rate 08/27/22 14:20 2 08/27/22 14:10 2 08/27/22 14:00 2 08/27/22 13:50 5 08/27/22 13:42 5 08/27/22 10:05 Transfer of Care Handoff Completed per policy Notes Mental Status: alert / awake / arousable and participated in evaluation Patient Amnestic to Procedure: Yes Nausea / Vomiting: adequately controlled Pain: adequately controlled Airway Patency, RR, SpO2: stable & adequate BP & HR: stable & adequate Hydration State: stable & adequate Neuraxial Anesthesia: was administered and sensory block is resolving Anesthetic Complications: no major complications apparent and Pt Satisfied with anesthetic care
[2022-08-27] MEDS ORDERED: oxyCODONE HCL IR 5 MG TAB (IMMEDIATE RELEASE) PO PRN (15:33)
[2022-08-27] MEDS ORDERED: bisacodyL 10 MG SUPP PR PRN (15:33)
[2022-08-27] MEDS ORDERED: MAGNESIUM HYDROXIDE SUSP 30 ML UDC PO PRN (15:33)
[2022-08-27] MEDS ORDERED: HYDROmorphone INJ 0.5 MG/0.5 ML SYR IV PRN (15:33)
[2022-08-27] MEDS ORDERED: NALOXONE HCL 0.4 MG/1 ML VIAL/CARP IV PRN (15:33)
[2022-08-27] MEDS ORDERED: METOCLOPRAMIDE HCL INJ 5 MG/ML 2 ML VIAL IV PRN (15:33)
[2022-08-27] MEDS ORDERED: NITROGLYCERIN SL 0.4 MG/TAB TAB SL PRN (15:33)
[2022-08-27] MEDS: SODIUM CHLORIDE 0.9% 1000ML 1,000 ML IV SCH (16:10)
[2022-08-27] MEDS: CETIRIZINE HCL 10 MG TABLET PO SCH (16:10)
[2022-08-27] MEDS: ACETAMINOPHEN 500 MG TAB PO SCH ×2 (16:12→23:26)
[2022-08-27] MEDS: KETOROLAC TROMETHAMINE 15 MG/ML VIAL IV SCH ×2 (16:13→22:34)
[2022-08-27] MEDS: ceFAZolin 2000MG 2,000 MG/15 ML SYR IV SCH (20:16)
[2022-08-27] MEDS: DOCUSATE SODIUM 100 MG CAP PO SCH (20:17)
[2022-08-27] MEDS: ASPIRIN 81 MG ECTAB PO SCH (20:18)
[2022-08-27] MEDS ORDERED: ATORVASTATIN 20 MG TAB PO SCH (21:00)
[2022-08-27] MEDS ORDERED: SENNA 8.6 MG TAB PO SCH (21:00)
[2022-08-28] MEDS: SODIUM CHLORIDE 0.9% 1000ML 1,000 ML IV SCH (01:58)
[2022-08-28 03:18] VITALS: TEMP 97.9
[2022-08-28] MEDS: ceFAZolin 2000MG 2,000 MG/15 ML SYR IV SCH (04:21)
[2022-08-28] MEDS: KETOROLAC TROMETHAMINE 15 MG/ML VIAL IV SCH ×2 (04:21→10:34)
--- NOTE | 2022-08-28 06:09 | Orthopedic Progress Note ---
Date of Service August 28, 2022 Assessment & Plan (1) Status post left knee replacement: Overall she is doing very well. She is not having much pain in the left knee. She will be seen by physical therapy today for ambulation and range of motion exercises. She is on aspirin for DVT prophylaxis. She feels comfortable mostly taking Tylenol for pain. She has some oxycodone at home if needed. She can be discharged home later today. She will follow-up with orthopedics in 2 weeks. Kuldeep Aquino was seen and examined at bedside this morning. Overall she is doing very well. She is not having too much pain in the left knee. She has been up and ambulating to the bathroom. She has no complaints.. Review of Systems All systems reviewed & are unremarkable except as noted in HPI & below. Physical Exam On physical examination of the left knee, the dressing is clean and dry. Her leg is out full extension. She has active dorsiflexion plantarflexion of her left ankle. Sensation is intact throughout.. Results & Data Results & Data Laboratory Results . Diagnostic Findings Postoperative x-rays of the left knee show the prosthesis to be in anatomic alignment without any evidence of fracture, screws, or loosening. PG Care Time/CCT Total # of Minutes Spent Total Time Spent with Patient: Total time spent is greater than 50% in coordination of care (as documented) at patient's floor/unit and/or counseling patient: Coding Level of Care Code 10613 Post Operative Follow-Up Diagnoses Status post left knee replacement Z96.652
--- NOTE | 2022-08-28 06:10 | Discharge Summary ---
Date of Service August 28, 2022 Principal Diagnosis Same as "Discharge Diagnosis" noted below under Discharge Instructions. Discharge Exam On physical examination of the left knee, the dressing is clean and dry. Her leg is out full extension. She has active dorsiflexion plantarflexion of her left ankle. Sensation is intact throughout.. Discharge Data Procedures Performed Operation Date: 08/27/22 12:30 Actual Procedures p Left Total Knee Arthroplasty(Left) - Manuel Daly DO Ordered Studies 08/27/22 05:00 US - OR guided needle placemen Routine Hospital Course (1) Status post left knee replacement: On August 27, 2022 Miles arrived at [facility] and underwent a left knee replacement without complication. Postoperatively she was started on aspirin for DVT prophylaxis and transferred to the general orthopedic floors. Her hospital course was uneventful. On postop day #1, her vital signs were stable and her pain was well controlled. She was able to participate well with physical therapy doing ambulation and range of motion exercises. She was then discharged home. She will follow-up with orthopedics in 2 weeks. PG Care Time/CCT Total # of Minutes Spent Total Time Spent with Patient: Total time spent is greater than 50% in coordination of care (as documented) at patient's floor/unit and/or counseling patient: Discharge Plan Discharge Items Patient Disposition: Home - Home Health Services Reason For Visit: DJD Knee Left Discharge Diagnosis: Left knee replacement Activity: Per Instructions section Non-emergency contact: Surgeon Call non-emergency contact if: your wound has increased redness and your wound has increased drainage Follow-up/Referrals: Cristina Hills DO [Primary Care Provider] - Diet: Regular Addtl Attending Provider Instructions: Activity and Therapy Recommendations: * If you are using [facility] then therapy will be provided at your home until they feel you have accomplished all of your goals. * If you are using [facility] then Physical Therapy will be provided until they feel you are ready to start Outpatient Physical Therapy. * If you are not using home therapy then Outpatient Physical Therapy should start about 3-5 days from your day of surgery. Therapy will last about 6-10 weeks * It is important not to put a pillow under your knee when you are relaxing or sleeping. It is just as important to make sure you are getting your knee perfectly straight as it is to regain your knee bend. * You were shown a series of exercises in the hospital. Do these exercises three times each day including the exercises you were shown in physical therapy. * Get up and walk several times each day. For the first four weeks, try not to stand or walk for more than one hour at a time. If you do stand or walk for more than one hour, you will not hurt anything, but your leg will likely swell. * As you feel comfortable, you may change from the walker or crutches to a cane and then to independent walking. Medications: * Narcotic You will likely be sent home from the hospital with a prescription for the narcotic pain medication that worked best throughout your stay. * Aspirin Most patients will be required to take Aspirin 81mg twice a day for 6 weeks after surgery. This is obtained [id number] and a prescription is not necessary. * Other medications may be prescribed for specific circumstances. If you have any questions, please call the office at . * Resume previous home medications unless otherwise instructed TEDs/Elastic Stockings: The white elastic stockings help limit swelling and prevent blood clots from forming in your legs.~ The more you wear them, the more they work. Wear them for six weeks. Dressing Care: The dressing can be changed after physical therapy on postop day #1. Daily dry dressing changes for a few days, especially if the incision is still draining some. If the incision is not draining then you may leave the pawel open to air. If there is a little bit of drainage or if the pawel are getting stuck on your clothing then cover the incision with a dry dressing. The pawel will be removed at your 2 week follow-up appointment. Showering: You may shower 5 days from the day of surgery as long as the incision is no longer draining. You may shower with the pawel exposed. Let soapy water run over the pawel and pat them dry. Do not scrub or soak the incision. Things To Watch For: * Drainage from the incision site that occurs more than one week after your surgery. * Increased redness at the incision site. * Fever above 102 degrees Fahrenheit. * Unusual chest pain or shortness of breath. * Call [facility] at with any of the above problems Follow-Up Visit: Follow-up with Dr. Daly's PA (Manuel Wolfe) 2-3 weeks after your day of surgery. He will remove your pawel and answer any questions. If you have any additional questions or concerns, Dr Daly is usually in the office at the same time and will be available An appointment was probably scheduled when you signed-up for surgery in the office. If you have any questions call Office Instructions: More detailed instructions as well as Frequently Asked Questions were provided in a folder by our office when you signed-up for surgery. Please review these instructions when you get home. If you have any further questions or concerns, please feel free to call the office at [phone] Pending Studies at Discharge: No Stand-Alone Forms: [facility] Medications and DC Order Prescriptions: New aspirin 81 mg Tablet,Delayed Release (Dr/Ec) 81 mg PO BID 42 Days Qty: 0 0RF [facility]ructions .MEDSUPPLY Qty: 1 0RF Rx Instructions: As directed oxycodone-acetaminophen 5-325 mg tablet 1 tab PO Q6H PRN (Reason: pain) Qty: 30 0RF amlodipine 5 mg tablet 5 mg PO QAM nitroglycerin 0.4 mg tablet, sublingual 0.4 mg SL Q5M PRN (Reason: Chest Pain) lisinopril 10 mg tablet 10 mg PO QAM Zyrtec 10 mg capsule 10 mg PO QAM PRN (Reason: allergies) famotidine 20 mg tablet 20 mg PO QAM metoprolol succinate 25 mg Tablet Extended Release 24 Hr 25 mg PO QAM sertraline 50 mg Tablet 50 mg PO QAM omega-3 fatty acids-vitamin E 1,000 mg Capsule 1 cap PO QAM coenzyme Q10 [Co Q-10] 200 mg Capsule 200 mg PO QAM Women's 50 Plus Daily Formula 400 mcg-500 mg calcium-20 mcg Tablet 1 tab PO QAM atorvastatin 20 mg Tablet 20 mg PO HS Admission Data Admit Date/Time: 08/27/22 13:44 Attending Provider: Manuel Daly Admit Provider: Manuel Daly Primary Care Provider: Cristina Hills
[2022-08-28 07:47] VITALS: BP 146/72; PULSE 73; O2SAT 97
[2022-08-28] MEDS ORDERED: dexAMETHasone 4 MG TAB PO SCH (08:00)
[2022-08-28] MEDS: ASPIRIN 81 MG ECTAB PO SCH (08:35)
[2022-08-28] MEDS: DOCUSATE SODIUM 100 MG CAP PO SCH (08:35)
[2022-08-28] MEDS: ACETAMINOPHEN 500 MG TAB PO SCH (08:35)
[2022-08-28] MEDS: CETIRIZINE HCL 10 MG TABLET PO SCH (08:36)
[2022-08-28] MEDS ORDERED: MULTIVITAMIN TAB PO SCH (09:00)
[2022-08-28] MEDS ORDERED: amLODIPine BESYLATE 5 MG TAB PO SCH (09:00)
[2022-08-28] MEDS ORDERED: METOPROLOL SUCC 25MG EXT REL TAB PO SCH (09:00)
[2022-08-28] MEDS ORDERED: lisinopril 10 MG TAB PO SCH (09:00)
[2022-08-28] MEDS ORDERED: FAMOTIDINE 20 MG TAB PO SCH (09:00)
[2022-08-28] MEDS ORDERED: SERTRALINE HCL 50 MG TABLET PO SCH (09:00)
== END 2022-08-28 11:51 | disposition home health service (06) ==
LOC: 3E 09:41 → ASU 09:41